=== PATIENT | female | born 1985 | race Caucasian/White ===

== ENCOUNTER 2024-03-04 14:12 | Outpatient (AMB) | payer OTHER, SELFPAY ==
--- NOTE | 2024-03-04 15:10 | AM.OFFWIN_ITS ---
Intake Vital Signs 03/04/24 15:29 Height 5 ft 6 in Weight 185 lb 4 oz BMI 29.9 BP 128/80 Blood Pressure Location Rt brachial Position Sitting Pulse 92 Pulse Source Pulse Oximeter Temp 98.1 F Temp Source Oral Pulse Oximetry (%) 96 Oxygen Delivery Method Room Air Intake Visit Reasons: test Intake Note: Pt is here today for possible , pt mentioned symptoms started 1 wk ago increase of appetite, cramps, and nausea Patient Tobacco Use Status: Never used Tobacco Allergies Penicillins Allergy (Unknown, Verified 03/04/24 15:34) Unknown Do you need a note to return to daycare/school/sports/work: No HPI HPI Comments History of Present Illness Details 38 y/o female patient who presents to [facility] clinic asking for testing. Reports feeling nauseous, abdominal cramping, urinary frequency and increased appetite. PFSH Social History Patient Tobacco Use Status: Never used Tobacco Review of Systems Const All systems reviewed & are unremarkable except as noted in HPI and below Physical Exam Vital Signs: Last Vital Signs Temp 98.1 F 03/04/24 15:29 Pulse 92 03/04/24 15:29 BP 128/80 03/04/24 15:29 Pulse Ox 96 03/04/24 15:29 Oxygen Delivery Method Room Air 03/04/24 15:29 BMI result Body Mass Index 29.9 Const General: comfortable and no acute distress Nutritional Appearance: thin Orientation/consciousness: patient oriented x3 Neuro General: patient oriented x3, gait normal and moves all extremities Psych Speech and movement: Normal speech and movement present Assessment & Plan Assessment & Plan (1) : Code(s): Z34.90 - Encounter for supervision of normal , unspecified, unspecified trimester Qualifiers: Weeks of gestation: unspecified Qualified Code(s): Z34.90 - Encounter for supervision of normal , unspecified, unspecified trimester Plan: - Urine HCG negative today. Coding Level of Care Code Est Pt Level 3 (40074) Diagnoses , unspecified gestational age Z34.90 Weeks of gestation: unspecified Time Spent (min) 15
[2024-03-04 15:29] VITALS: BP 128/80; PULSE 92; TEMP 36.7; O2SAT 96; BMI 29.9
== END 2024-03-04 16:43 | disposition home or self-care (01) ==
PROVIDERS: Visit Provider Nurse Practitioner Family
DX: R11.2 Nausea with vomiting, unspecified (principal); Z32.02 Encounter for pregnancy test, result negative
CPT/HCPCS: 81025; 99213